=== PATIENT | male | born 1960 | race Caucasian/White ===

== ENCOUNTER 2019-10-27 12:59 | Inpatient (IN) | payer OTHER ==
[2019-10-27 14:24] VITALS: BMI 26.2
--- NOTE | 2019-10-27 16:10 | HP ---
CIWA Score Nausea/Vomitin-No Nausea/No Vomiting Muscle Tremors: 3 Anxiety: 0-No Anxiety, at Ease Agitation: 0-Normal Activity Paroxysmal Sweats: No Perspiration Orientation: 0-Oriented Tacttile Disturbances: 0-None Auditory Disturbances: 0-None Visual Disturbances: 0-None Headache: 0-None Present CIWA-Ar Total Score: 3 - Admission Criteria OASAS Guidelines: Admission for Medically Managed Detox: Requires at least one of the followin. CIWA greater than 12 2. Seizures within the past 24 hours 3. Delirium tremens within the past 24 hours 4. Hallucinations within the past 24 hours 5. Acute intervention needed for co occurring medical disorder 6. Acute intervention needed for co occurring psychiatric disorder 7. Severe withdrawal that cannot be handled at a lower level of care (continued vomiting, continued diarrhea, abnormal vital signs) requiring intravenous medication and/or fluids 8. Admission ROS [facility] Allergies/Adverse Reactions: Allergies Allergy/AdvReac Type Severity Reaction Status Date / Time No Known Allergies Allergy Verified 10/27/19 14:09 History of Present Illness: 59 y/o M with history of heroin (on methadone), benzos,alcohol use presenting to [facility] for detox from alcohol and benzos. Benzos and alcohol use for years and heroin since 19. Heroin use: pt on methadone 110 mg at [facility]. continues to snort 1 bag 2-3 x a week. used to inject until 1 year ago. Last use was yesterday. Received methadone today. no overdose, Benzos : 2 sticks a day daily if not available to 2 klonopin pills instead. last use was yesterday morning and it was 2 xanax sticks. get tremors, anxiety and restless but no seizures. Alcohol: 1 case of beer everyday. No blackouts. No seizures. 1 cigarette or so a day. Gone to detox/ rehab before at [facility] 14 yrs ago. remained sober and didnt use drugs for 3 yrs after the rehab. PMH: COPD PSYCH : anxiety and depression PSH: splenectomy for blood disorder Social Hx: lives in [facility] in [place]. unemployed and on section [employer]. PE VS : 97F, initial BP 176/102 repeat 146/93 mmHg, 92bpm, 19 STACIA 0 Utox FEN, MOP, BZO, MTD CIWA:3 General : NAD HEENT: PERRLA, moist membranes LUNGS: wheezing in lung [place] HEART: RRR no MRG Abdomen: +BS, NTND extremities : 1+ pulses, 2+ edema, erythema, and warmth extending upwards with opening from scab removal and from scratching neuro: grossly intact Plan: Benzo detox: valium protocol COPD : albuterol PRN, duonebs ,symbicort B/L leg cellulitis and swelling : augmentin 875mg for 7 days probiotics 1hr later elevate legs wound care - Ebola screening Have you traveled outside of the country in the last 21 days: No Have you had contact with anyone from an Ebola affected area: No Do you have a fever: No Patient History - Smoking Cessation Smoking history: Current every day smoker Have you smoked in the past 12 months: Yes Aproximately how many cigarettes per day: 5 Hx Chewing Tobacco Use: No Initiated information on smoking cessation: Yes 'Breaking Loose' booklet given: 10/27/19 - Substances abused Alcohol Substance route: Oral Frequency: Daily Amount used: A CASE OF BEER (16oz each) Age of first use: 17 Date of last use: 10/26/19 Heroin Substance route: Injection Frequency: Daily Amount used: 6 bags Age of first use: 19 Date of last use: 10/26/19 Alprazolam (Xanax) Substance route: Oral Frequency: Daily Amount used: 4 pills Age of first use: 22 Date of last use: 10/26/19 Benzodiazepine (Klonopin) Substance route: Oral Frequency: Daily Amount used: 3 pills Age of first use: 22 Date of last use: 10/26/19 Admission Physical Exam BHS - Vital Signs Vital Signs: Vital Signs - 24 hr 10/27/19 14:08 Temperature 97.0 F L Pulse Rate 92 H Respiratory 19 Rate Blood Pressure 176/102 H Breathalyzer - Breathalyzer Breathalyzer: 0 Urine Drug Screen - Test Device Lot number: [id number] Expiration date: 06/18/21 - Control Is test valid?: Yes - Results Drug screen NEGATIVE: No Urine drug screen results: FEN-Fentanyl, MOP-Opiates, MTD-Methadone, BZO- Benzodiazepines Inpatient Rehab Admission - Rehab Decision to Admit Inpatient rehab admission?: No
--- NOTE | 2019-10-27 16:30 | PN ---
Teaching Attending Note Name of Resident: Cindy Simmons ATTENDING PHYSICIAN STATEMENT I saw and evaluated the patient. I reviewed the resident's note and discussed the case with the resident. I agree with the resident's findings and plan as documented. SUBJECTIVE: 59 yo with h/o COPD here for AUD- drinks 1 case of beer, no h/o seizures/DT's. Uses Benzo illicitly. Also with OUD- on methadone. OBJECTIVE: Vital Signs - 24 hr 10/27/19 14:08 Temperature 97.0 F L Pulse Rate 92 H Respiratory 19 Rate Blood Pressure 176/102 H BP 146/93 yeison leg swelling and erythema ASSESSMENT AND PLAN: AUD- valium detox-for alcohol/benzo detox Cellulitis with small open area-antibiotics/probiotics/elevate legs/dressing change
[2019-10-27] MEDS ORDERED: ACETAMINOPHEN 325 MG TABLET (FP) PO PRN ×2 (16:55)
[2019-10-27] MEDS ORDERED: MELATONIN 5 MG TABLETS PO PRN (16:55)
[2019-10-27] MEDS ORDERED: MAG HYDROX/AL HYDROX/SIMETH 30 ML UNIT-DOSE CUP PO PRN (16:55)
[2019-10-27] MEDS ORDERED: MAGNESIUM CITRATE 300 ML BOTTLE PO PRN (16:55)
[2019-10-27] MEDS ORDERED: MAGNESIUM HYDROX 2400MG/30ML ORAL SUSPENSION 30 ML CUP PO PRN (16:55)
[2019-10-27] MEDS ORDERED: METHOCARBAMOL 500 MG TABLET PO PRN (16:55)
[2019-10-27] MEDS ORDERED: MENTHOL/PHENOL 1 EACH UD MM PRN (16:55)
[2019-10-27] MEDS ORDERED: IBUPROFEN 400 MG TABLET (FP) PO PRN (16:55)
[2019-10-27] MEDS ORDERED: BISMUTH SUBSALICYLATE 524 MG/30 ML UD PO PRN (16:55)
[2019-10-27] MEDS ORDERED: diazePAM 5 MG TABLET PO ONE (16:55)
[2019-10-27] MEDS ORDERED: hydrOXYzine PAMOATE 25 MG CAPSULE (FP) PO PRN (16:55)
[2019-10-27] MEDS ORDERED: AMOX TR/POT CLAV 875MG/125MG TABLETS (FP) PO ONE (16:59)
[2019-10-27] MEDS ORDERED: ALBUTEROL SO4 0.042% IH SOL 1.25 MG/3 ML VIAL.NEB NEB PRN (17:08)
[2019-10-27] MEDS: AMOX TR/POT CLAV 875MG/125MG TABLETS (FP) PO SCH (17:57)
[2019-10-27] MEDS: BUDESONIDE/FORMETEROL FUMARATE 80/4.5 mcg INHALER IH SCH (22:17)
[2019-10-27] MEDS: THIAMINE HCL 100 MG TABLET (FP) PO SCH (22:18)
[2019-10-27] MEDS: diazePAM 5 MG TABLET PO SCH (22:18)
[2019-10-28] MEDS: diazePAM 5 MG TABLET PO SCH ×3 (05:21→22:16)
[2019-10-28] MEDS ORDERED: METHADONE HCL 10 MG TABLET PO SCH (07:30)
[2019-10-28] MEDS ORDERED: METHADONE HCL 10 MG TABLET ONE (07:51)
[2019-10-28] MEDS ORDERED: METHADONE HCL 40 MG DISPERSABLE TABLET ONE (07:51)
[2019-10-28] MEDS: METHADONE 80 MG, METHADONE 30 MG PO SCH (07:53)
[2019-10-28] MEDS: AMOX TR/POT CLAV 875MG/125MG TABLETS (FP) PO SCH ×2 (07:55→17:56)
[2019-10-28] MEDS: diazePAM 5 MG TABLET PO PRN (08:44)
--- NOTE | 2019-10-28 09:08 | EKG ---
Test Reason : Blood Pressure : / mmHG Vent. Rate : 086 BPM Atrial Rate : 086 BPM P-R Int : 148 ms QRS Dur : 090 ms QT Int : 394 ms P-R-T Axes : 078 076 073 degrees QTc Int : 471 ms NORMAL SINUS RHYTHM NORMAL ECG NO PREVIOUS ECGS AVAILABLE Confirmed by Ward Lord MD ([id number]) on 10/28/2019 9:08:12 AM Referred By: EDU Confirmed By:Ward Lord MD
[2019-10-28] MEDS: BUDESONIDE/FORMETEROL FUMARATE 80/4.5 mcg INHALER IH SCH ×2 (09:36→22:16)
[2019-10-28] MEDS: PRENATAL VITAMINS W/ FOLIC ACID TABLET (FP) PO SCH (09:36)
[2019-10-28] MEDS: LACTOBACILLUS ACIDOPHILUS 1 TABLET PO SCH (09:36)
[2019-10-28] MEDS: ALBUTEROL SO4 2.5/IPRATROPIUM 0.5 INH SOL 3 ML VIAL.NEB. NEB PRN (09:39)
[2019-10-28 11:00] LABS: HEMATOCRIT 43.8 % (35.4-49); HEMOGLOBIN 14.2 GM/dL (11.7-16.9); MCH 30.5 pg (25.7-33.7); MCHC 32.4 g/dl (32.0-35.9); MEAN CELL VOLUME 94.3 fl (80-96); MEAN PLT VOLUME 8.7 fl (7.5-11.1); PLATELET COUNT 436 K/MM3 (134-434); RBC 4.65 M/mm3 (4.00-5.60); RDW 14.9 % (11.9-15.9); WHITE BLOOD COUNT 7.4 K/mm3 (4.0-10.0)
[2019-10-28 11:31] LABS: ALBUMIN 3.1 g/dl (3.4-5.0); BILIRUBIN,TOTAL 0.8 mg/dL (0.2-1); BLOOD UREA NITROGEN 13.7 mg/dL (7-18); CALCIUM 9.3 mg/dL (8.5-10.1); CREATININE 0.9 mg/dL (0.55-1.3); POTASSIUM 5.4 mmol/L (3.5-5.1)
--- NOTE | 2019-10-28 14:53 | PN ---
[facility] CIWA - CIWA Score Nausea/Vomitin-Mild Nausea/No Vomiting Muscle Tremors: 4-Moderate,w/Arms Extend Anxiety: 3 Agitation: 2 Paroxysmal Sweats: 2 Orientation: 0-Oriented Tacttile Disturbances: 1-Very Mild Itch/Numbness Auditory Disturbances: 0-None Visual Disturbances: 0-None Headache: 0-None Present CIWA-Ar Total Score: 13 BHS Progress Note (SOAP) Subjective: 59 years old male admitted on 10/27/19 for alcohol benzo withdrawal sx management treated with valium detox regimen feeling less anxiety due to received methadone 110 mg today ate breakfast and lunch ambulating on hallway encourage the patient to attend meetings and groups Objective: 10/28/19 14:54 Vital Signs Temperature 97.1 F L 10/28/19 13:10 Pulse Rate 78 10/28/19 13:10 Respiratory Rate 18 10/28/19 13:10 Blood Pressure 146/96 10/28/19 13:10 O2 Sat by Pulse Oximetry (%) Laboratory Last Values WBC 7.4 K/mm3 (4.0-10.0) 10/28/19 07:50 RBC 4.65 M/mm3 (4.00-5.60) 10/28/19 07:50 Hgb 14.2 GM/dL (11.7-16.9) 10/28/19 07:50 Hct 43.8 % (35.4-49) 10/28/19 07:50 MCV 94.3 fl (80-96) 10/28/19 07:50 MCH 30.5 pg (25.7-33.7) 10/28/19 07:50 MCHC 32.4 g/dl (32.0-35.9) 10/28/19 07:50 RDW 14.9 % (11.9-15.9) 10/28/19 07:50 Plt Count 436 K/MM3 (134-434) H 10/28/19 07:50 MPV 8.7 fl (7.5-11.1) 10/28/19 07:50 Sodium 142 mmol/L (136-145) 10/28/19 07:50 Potassium 5.4 mmol/L (3.5-5.1) H 10/28/19 07:50 Chloride 104 mmol/L (98-107) 10/28/19 07:50 Carbon Dioxide 32 mmol/L (21-32) 10/28/19 07:50 Anion Gap 6 MMOL/L (8-16) L 10/28/19 07:50 BUN 13.7 mg/dL (7-18) 10/28/19 07:50 Creatinine 0.9 mg/dL (0.55-1.3) 10/28/19 07:50 Est GFR (CKD-EPI)AfAm 109.50 10/28/19 07:50 Est GFR (CKD-EPI)NonAf 94.48 10/28/19 07:50 Random Glucose 95 mg/dL (74-106) 10/28/19 07:50 Calcium 9.3 mg/dL (8.5-10.1) 10/28/19 07:50 Total Bilirubin 0.8 mg/dL (0.2-1) 10/28/19 07:50 AST 20 U/L (15-37) 10/28/19 07:50 ALT 22 U/L (13-61) 10/28/19 07:50 Alkaline Phosphatase 95 U/L (45-117) 10/28/19 07:50 Total Protein 7.0 g/dl (6.4-8.2) 10/28/19 07:50 Albumin 3.1 g/dl (3.4-5.0) L 10/28/19 07:50 lab noted K+ elevation repeat K+ Assessment: 10/28/19 14:55 alcohol benzo withdrawal sx Plan: valium regimen
--- NOTE | 2019-10-28 15:42 | CONSULT ---
[facility] Psychiatric Consult - Data Date of interview: 10/28/19 Admission source: [facility] Identifying data: First admission to [facility] for this 59 y/o male self-referred for detoxification (MAYELIN issues : xanax, nicotine, alcohol, opioid) . Interviewed at [address] [place] [address]. Patient is single, father of one, domiciled, unemployed and supported on welfare. Substance Abuse History: Discussed with the patient. [facility] report as foloows : Smoking history: Current every day smoker. Have you smoked in the past 12 months: Yes. Aproximately how many cigarettes per day: 5. Hx Chewing Tobacco Use: No. Initiated information on smoking cessation: Yes. ' Breaking Loose' booklet given: 10/27/19. - Substances abused. Alcohol. Substance route: Oral. Frequency: Daily. Amount used: A CASE OF BEER (16oz each). Age of first use: 17. Date of last use: 10/26/19. Heroin. Substance route: Injection. Frequency: Daily. Amount used: 6 bags. Age of first use: 19. Date of last use: 10/26/19. Alprazolam (Xanax). Substance route: Oral. Frequency: Daily. Amount used: 4 pills. Age of first use: 22. Date of last use: 10/26/19. Benzodiazepine (Klonopin). Substance route: Oral. Frequency: Daily. Amount used: 3 pills. Age of first use: 22. Date of last use: 10/26/19 Medical History: Remarkable for COPD, bronchial asthma, emphysema and cellulitis of both legs. Psychiatric History: No reported history of psychiatric hospitalizations. Patient declares current psychiatric aftercare at the [facility] in [facility] ([address]) where he sees Dr Lima for medication management (prozac 40 mg/day + seroquel 100 mg/bid). Diagnosed with PTSD + MDD. Currently on methadone maintenance (110 mg/day) at the [facility] program in the [place]. Mr Morfin denies history of suicide attempts. Physical/Sexual Abuse/Trauma History: Patient denies history of abuse. Served for three years in the [employer] (was stationed in [place]). Discharged in 1982. Denies exposure to combat situations. Discharge status : not disclosed by patient. Additional Comment: Urine drug screen results: FEN-Fentanyl, MOP-Opiates, MTD- Methadone, BZO-Benzodiazepines. Noted. Mental Status Exam - Mental Status Exam Alert and Oriented to: Time, Place, Person Cognitive Function: Good Patient Appearance: Well Groomed (tattoos on right arm +forearm) Mood: Withdrawn, Hopeful Affect: Appropriate, Normal Range Patient Behavior: Fatigued, Appropriate, Cooperative Speech Pattern: Clear Voice Loudness: Normal Thought Process: Intact, Goal Oriented Thought Disorder: Not Present Hallucinations: Denies Suicidal Ideation: Denies Homicidal Ideation: Denies Insight/Judgement: Poor Sleep: Poorly, Difficulty falling asleep Appetite: Good Gait/Station: Other (not observed. supine for entire interview) Psychiatric Findings - Problem List ([place] 1, 2,3) (1) Opioid dependence on agonist therapy Current Visit: Yes Status: Chronic (2) Alcohol use disorder Current Visit: Yes Status: Chronic (3) Benzodiazepine dependence Current Visit: Yes Status: Chronic (4) Nicotine dependence Current Visit: Yes Status: Chronic (5) Substance induced mood disorder Current Visit: Yes Status: Chronic (6) History of depression Current Visit: Yes Status: Chronic Comment: On fluoxetine. (7) History of posttraumatic stress disorder (PTSD) Current Visit: Yes Status: Chronic Comment: As per self-report. (8) Insomnia Current Visit: Yes Status: Chronic - Initial Treatment Plan Initial Treatment Plan: Psychoeducation. Sleep hygiene. Detoxification. AA/NA meetings. Support. Resumed : seroquel 100 mg po hs + prozac 40 mg po daily. Side effects/benefits of both drugs are discussed with the patient. Consent ( verbal) provided for treatment. Observation.
[2019-10-28] MEDS: THIAMINE HCL 100 MG TABLET (FP) PO SCH (22:17)
[2019-10-28] MEDS: QUEtiapine FUMARATE 100 MG TABLET (FP) PO SCH (22:17)
[2019-10-29] MEDS ORDERED: METHADONE HCL 40 MG DISPERSABLE TABLET ONE (05:00)
[2019-10-29] MEDS ORDERED: METHADONE HCL 10 MG TABLET ONE (05:00)
[2019-10-29] MEDS: METHADONE 80 MG, METHADONE 30 MG PO SCH (05:31)
[2019-10-29] MEDS: diazePAM 5 MG TABLET PO SCH ×4 (05:31→18:02)
[2019-10-29] MEDS: AMOX TR/POT CLAV 875MG/125MG TABLETS (FP) PO SCH ×2 (07:13→18:02)
[2019-10-29] MEDS: diazePAM 5 MG TABLET PO PRN (08:31)
[2019-10-29] MEDS: FLUoxetine HCL 20 MG CAPSULE (FP) PO SCH (09:16)
[2019-10-29] MEDS: BUDESONIDE/FORMETEROL FUMARATE 80/4.5 mcg INHALER IH SCH ×2 (09:16→22:08)
[2019-10-29] MEDS: PRENATAL VITAMINS W/ FOLIC ACID TABLET (FP) PO SCH (09:16)
[2019-10-29] MEDS: LACTOBACILLUS ACIDOPHILUS 1 TABLET PO SCH (09:16)
--- NOTE | 2019-10-29 10:02 | PN ---
S CIWA - CIWA Score Nausea/Vomitin-No Nausea/No Vomiting Muscle Tremors: 2 Anxiety: 2 Agitation: 2 Paroxysmal Sweats: 1-Minimal Palms Moist Orientation: 0-Oriented Tacttile Disturbances: 0-None Auditory Disturbances: 0-None Visual Disturbances: 0-None Headache: 1-Very Mild CIWA-Ar Total Score: 8 S Progress Note (SOAP) Subjective: 59 years old male admitted on 10/27/19 for alcohol and benzo withdrawal sx management treated with valium detox regimen feeling better slept through the night less tremor discuss aftercare with staff Objective: 10/29/19 10:00 Vital Signs Temperature 99.2 F 10/29/19 09:21 Pulse Rate 86 10/29/19 09:21 Respiratory Rate 18 10/29/19 09:21 Blood Pressure 140/94 10/29/19 09:21 O2 Sat by Pulse Oximetry (%) Laboratory Last Values WBC 7.4 K/mm3 (4.0-10.0) 10/28/19 07:50 RBC 4.65 M/mm3 (4.00-5.60) 10/28/19 07:50 Hgb 14.2 GM/dL (11.7-16.9) 10/28/19 07:50 Hct 43.8 % (35.4-49) 10/28/19 07:50 MCV 94.3 fl (80-96) 10/28/19 07:50 MCH 30.5 pg (25.7-33.7) 10/28/19 07:50 MCHC 32.4 g/dl (32.0-35.9) 10/28/19 07:50 RDW 14.9 % (11.9-15.9) 10/28/19 07:50 Plt Count 436 K/MM3 (134-434) H 10/28/19 07:50 MPV 8.7 fl (7.5-11.1) 10/28/19 07:50 Sodium 142 mmol/L (136-145) 10/28/19 07:50 Potassium 5.4 mmol/L (3.5-5.1) H 10/28/19 07:50 Chloride 104 mmol/L (98-107) 10/28/19 07:50 Carbon Dioxide 32 mmol/L (21-32) 10/28/19 07:50 Anion Gap 6 MMOL/L (8-16) L 10/28/19 07:50 BUN 13.7 mg/dL (7-18) 10/28/19 07:50 Creatinine 0.9 mg/dL (0.55-1.3) 10/28/19 07:50 Est GFR (CKD-EPI)AfAm 109.50 10/28/19 07:50 Est GFR (CKD-EPI)NonAf 94.48 10/28/19 07:50 Random Glucose 95 mg/dL (74-106) 10/28/19 07:50 Calcium 9.3 mg/dL (8.5-10.1) 10/28/19 07:50 Total Bilirubin 0.8 mg/dL (0.2-1) 10/28/19 07:50 AST 20 U/L (15-37) 10/28/19 07:50 ALT 22 U/L (13-61) 10/28/19 07:50 Alkaline Phosphatase 95 U/L (45-117) 10/28/19 07:50 Total Protein 7.0 g/dl (6.4-8.2) 10/28/19 07:50 Albumin 3.1 g/dl (3.4-5.0) L 10/28/19 07:50 10/29/19 10:00 lab noted K+ repeat pending amlodip 5 mg po hs Assessment: 10/29/19 10:02 alcohol and benzo withdrawal Plan: valium regimen
[2019-10-29] MEDS: ALBUTEROL SO4 2.5/IPRATROPIUM 0.5 INH SOL 3 ML VIAL.NEB. NEB PRN (10:49)
[2019-10-29] MEDS ORDERED: amLODIPine BESYLATE 5 MG TABLET (FP) PO SCH (22:00)
[2019-10-29] MEDS: QUEtiapine FUMARATE 100 MG TABLET (FP) PO SCH (22:09)
[2019-10-29] MEDS: THIAMINE HCL 100 MG TABLET (FP) PO SCH (22:09)
[2019-10-30] MEDS ORDERED: METHADONE HCL 10 MG TABLET ONE (04:48)
[2019-10-30] MEDS ORDERED: METHADONE HCL 40 MG DISPERSABLE TABLET ONE (04:49)
[2019-10-30] MEDS: METHADONE 80 MG, METHADONE 30 MG PO SCH (05:20)
[2019-10-30] MEDS ORDERED: diazePAM 5 MG TABLET PO ONE (06:00)
[2019-10-30] MEDS: diazePAM 5 MG TABLET PO SCH (07:19)
[2019-10-30] MEDS: AMOX TR/POT CLAV 875MG/125MG TABLETS (FP) PO SCH (07:19)
[2019-10-30 09:40] VITALS: BP 146/88; PULSE 76; TEMP 99.1
[2019-10-30] MEDS: PRENATAL VITAMINS W/ FOLIC ACID TABLET (FP) PO SCH (10:16)
[2019-10-30] MEDS: LACTOBACILLUS ACIDOPHILUS 1 TABLET PO SCH (10:16)
[2019-10-30] MEDS: FLUoxetine HCL 20 MG CAPSULE (FP) PO SCH (10:16)
[2019-10-30] MEDS: BUDESONIDE/FORMETEROL FUMARATE 80/4.5 mcg INHALER IH SCH (10:17)
--- NOTE | 2019-10-30 12:13 | DS ---
[facility] Detox Discharge Summary Admission Date: 10/27/19 Discharge Date: 10/30/19 - History Present History: Alcohol Dependence, Sedative Dependence Additional Comments: 59 years old male admitted on 10/27/19 for alcohol and benzo withdrawal sx management treated with valium detox regimen patient tolerated well alert oriented x 3 cardiac S1S2 regular rate rhythm respiratory clear lung bilaterally on auscultation skin warm and dry - Physical Exam Results Vital Signs: Vital Signs Temperature 99.1 F 10/30/19 09:39 Pulse Rate 76 10/30/19 09:39 Respiratory Rate 18 10/30/19 09:39 Blood Pressure 146/88 10/30/19 09:39 O2 Sat by Pulse Oximetry (%) Pertinent Admission Physical Exam Findings: alcohol and benzo withdrawal sx Laboratory Last Values WBC 7.4 K/mm3 (4.0-10.0) 10/28/19 07:50 RBC 4.65 M/mm3 (4.00-5.60) 10/28/19 07:50 Hgb 14.2 GM/dL (11.7-16.9) 10/28/19 07:50 Hct 43.8 % (35.4-49) 10/28/19 07:50 MCV 94.3 fl (80-96) 10/28/19 07:50 MCH 30.5 pg (25.7-33.7) 10/28/19 07:50 MCHC 32.4 g/dl (32.0-35.9) 10/28/19 07:50 RDW 14.9 % (11.9-15.9) 10/28/19 07:50 Plt Count 436 K/MM3 (134-434) H 10/28/19 07:50 MPV 8.7 fl (7.5-11.1) 10/28/19 07:50 Sodium 142 mmol/L (136-145) 10/28/19 07:50 Potassium 4.9 mmol/L (3.5-5.1) 10/29/19 08:13 Chloride 104 mmol/L (98-107) 10/28/19 07:50 Carbon Dioxide 32 mmol/L (21-32) 10/28/19 07:50 Anion Gap 6 MMOL/L (8-16) L 10/28/19 07:50 BUN 13.7 mg/dL (7-18) 10/28/19 07:50 Creatinine 0.9 mg/dL (0.55-1.3) 10/28/19 07:50 Est GFR (CKD-EPI)AfAm 109.50 10/28/19 07:50 Est GFR (CKD-EPI)NonAf 94.48 10/28/19 07:50 Random Glucose 95 mg/dL (74-106) 10/28/19 07:50 Calcium 9.3 mg/dL (8.5-10.1) 10/28/19 07:50 Total Bilirubin 0.8 mg/dL (0.2-1) 10/28/19 07:50 AST 20 U/L (15-37) 10/28/19 07:50 ALT 22 U/L (13-61) 10/28/19 07:50 Alkaline Phosphatase 95 U/L (45-117) 10/28/19 07:50 Total Protein 7.0 g/dl (6.4-8.2) 10/28/19 07:50 Albumin 3.1 g/dl (3.4-5.0) L 10/28/19 07:50 RPR Titer Nonreactive (NONREACTIVE) 10/28/19 07:50 lab noted - Treatment Hospital Course: Detox Protocol Followed, Detoxed Safely, Responded well, Discharged Condition Good, Rehab Referral Accepted Patient has Accepted a Rehab Referral to: [facility] - Medication Discharge Medications: Ambulatory Orders Albuterol Sulfate [Albuterol Sulfate Hfa] 8.5 gm IH PRN PRN 10/27/19 Fluoxetine HCl [Prozac] 40 mg PO DAILY 10/27/19 Quetiapine Fumarate [Seroquel -] 200 mg PO BID 10/27/19 - Diagnosis (1) Alcohol use disorder Current Visit: Yes Status: Acute (2) Benzodiazepine dependence Current Visit: Yes Status: Acute (3) Nicotine dependence Current Visit: Yes Status: Acute Qualifiers: Nicotine product type: cigarettes Substance use status: in withdrawal Qualified Code(s): F17.213 - Nicotine dependence, cigarettes, with withdrawal (4) Substance induced mood disorder Current Visit: Yes Status: Suspected (5) Methadone maintenance therapy patient Current Visit: Yes Status: Chronic - AMA Did Patient Leave Against Medical Advice: No CIWA Score - CIWA Score Nausea/Vomitin-No Nausea/No Vomiting Muscle Tremors: 2 Anxiety: 2 Agitation: 1-Slight > Activity Paroxysmal Sweats: No Perspiration Orientation: 0-Oriented Tacttile Disturbances: 0-None Auditory Disturbances: 0-None Visual Disturbances: 0-None Headache: 0-None Present CIWA-Ar Total Score: 5
== END 2019-10-30 11:20 | disposition home or self-care (01) | DRG 773 ==
LOC: YASAS 12:59 → Y3N 17:11
PROVIDERS: ADMIT Allergy & Immunology; ATTEND Allergy & Immunology
PROC: HZ2ZZZZ Detoxification Services for Substance Abuse Treatment (ICD-10-PCS; principal; 2019-10-27)
DX: F10.230 Alcohol dependence with withdrawal, uncomplicated (principal); F11.23 Opioid dependence with withdrawal; F13.230 Sedative, hypnotic or anxiolytic dependence with withdrawal, uncomplicated; F17.210 Nicotine dependence, cigarettes, uncomplicated; F19.24 Other psychoactive substance dependence with psychoactive substance-induced mood disorder; F41.8 Other specified anxiety disorders; F43.10 Post-traumatic stress disorder, unspecified; F32.9 Major depressive disorder, single episode, unspecified; G47.00 Insomnia, unspecified; J43.9 Emphysema, unspecified; J45.998 Other asthma; L03.116 Cellulitis of left lower limb; L03.115 Cellulitis of right lower limb
CPT/HCPCS: 36415; 80053; 84132; 85027; 86593; 93005; 93010; 94640